=== PATIENT | male | born 1975 ===

== ENCOUNTER → 2020-06-19 11:53 | Outpatient (ROUT) | payer OTHER, SELFPAY ==
[2020-06-19 12:27] LABS: COVID19 -Nasal RAPID POSITIVE (Negative)
[2021-04-04 12:16] LABS: COVID19 -Nasal RAPID Negative (Negative)
== END ==
PROVIDERS: Visit Provider Family Medicine
DX: U07.1 COVID-19 (principal)
CPT/HCPCS: 87635

== ENCOUNTER → 2020-09-26 13:08 | Outpatient (ROUT) | payer OTHER, SELFPAY ==
[2020-09-26 13:46] LABS: COVID19 -Nasal RAPID Negative (Negative)
== END ==
PROVIDERS: Visit Provider Family Medicine
DX: Z01.812 Encounter for preprocedural laboratory examination (principal); Z20.822 Contact with and (suspected) exposure to COVID-19
CPT/HCPCS: 87635